=== PATIENT | female | born 1970 | race Two or more races ===

== ENCOUNTER → 2017-02-17 | Outpatient (CLI) | payer MEDICAID ==
[~2017-02-17] VITALS: Ht 165.1 cm; Wt 133.4 kg
[~2017-02-17] MED LIST: ADENOSINE IV STA; GIVE UN DILUTED IV STA
== END ==
LOC: HDHVI->DVH 08:56
PROVIDERS: ATTEND Internal Medicine Cardiovascular Disease
DX: R42 Dizziness and giddiness (principal); R03.0 Elevated blood-pressure reading, without diagnosis of hypertension; R06.02 Shortness of breath
CPT/HCPCS: 78452; 93005; 93306; 96374; 96375; A9500; J0153

== ENCOUNTER → 2017-07-04 | Outpatient (CLI) | payer MEDICAID ==
[~2017-07-04] VITALS: Ht 165.1 cm; Wt 131.5 kg
[~2017-07-04] MED LIST changes: -ADENOSINE IV STA; +ASPI81TA27 PO; +CAR3125T OR; +CITA-73 PO; +ENA2.5T PO; -GIVE UN DILUTED IV STA; +IBUP800T24 PO; +OME20T PO
[2017-07-04 10:35] VITALS: BP 133/83
[2017-07-04 11:00] VITALS: BP 141/87
[2017-07-04 12:47] LABS: Basophils # (auto) 0 uL; Basophils % (auto) 0.4 % (0.0-2.0); CONDITION Y; Eosinophils # (auto) 0.2 uL; Eosinophils % (auto) 2.9 % (0.0-7.0); Hematocrit 36.1 % (36.0-46.0); Hemoglobin 12.7 g/dL (12.2-16.2); Lymphocytes # (auto) 1.1 uL; Lymphocytes % (auto) 18.1 % (10.0-50.0); Mean Corpuscular Hemoglobin 31.1 pg (28.0-32.0); Mean Corpuscular Volume 88.8 fL (80.0-100.0); Mean Platelet Volume 8.1 fL (7.4-10.4); Monocytes # (auto) 0.6 uL; Monocytes % (auto) 9.2 % (0.0-12.0); Neutrophils # (auto) 4.2 uL; Neutrophils % (auto) 69.4 % (37.0-80.0); Platelet Count (auto) 326 10^3/uL (140-450); Red Cell Distribution Width 13.1 % (11.6-16.0); White Blood Cell 6.1 10^3/uL (4.4-10.8)
[2017-07-04 12:53] LABS: INR 0.89 (0.9-1.15); Prothrombin Time 9.7 sec (9.37-12.3)
[2017-07-04 13:45] LABS: Potassium 4.2 mmol/L (3.5-5.1)
[2017-07-04 13:47] LABS: BUN/Creatinine Ratio 17.8; Calcium 8.7 mg/dL (8.5-10.1)
== END | disposition home or self-care (01) ==
LOC: CHF HDHVI 10:13
PROVIDERS: ATTEND Internal Medicine Cardiovascular Disease
DX: Z01.818 Encounter for other preprocedural examination (principal); I10 Essential (primary) hypertension; D64.9 Anemia, unspecified; R79.1 Abnormal coagulation profile
CPT/HCPCS: 36415; 80048; 85025; 85610; 85730; 93005; G0463

== ENCOUNTER 2017-07-07 09:20 | Day surgery (SDC) | payer MEDICAID ==
[~2017-07-07] VITALS: Ht 165.1 cm; Wt 131.5 kg
[2017-07-07] MEDS ORDERED: IOHEXOL 350 MG/ML 100ML IJ ONE (10:20)
[2017-07-07] MEDS ORDERED: LIDOCAINE 2%HCL (LOCAL ANESTH.) INJ 20ML MDV ONE ×2 (10:20→10:53)
[2017-07-07] MEDS ORDERED: MIDAZOLAM HCL 1MG/1ML-2 ML VIAL ONE (10:23)
[2017-07-07] MEDS ORDERED: fentaNYL CITRATE 100 MCG/2 ML VL ONE (10:23)
[2017-07-07] MEDS ORDERED: SODIUM CHL 0.9% 0 ML ONE (10:24)
[2017-07-07] MEDS ORDERED: ANGIOMAX 250 MG VIAL IV ONE (10:25)
== END 2017-07-07 13:30 | disposition home or self-care (01) ==
LOC: CATH 09:20
PROVIDERS: ATTEND Internal Medicine Cardiovascular Disease
DX: R07.9 Chest pain, unspecified (principal); I10 Essential (primary) hypertension; E78.5 Hyperlipidemia, unspecified
CPT/HCPCS: 93460; J2250

== ENCOUNTER → 2022-07-09 | Outpatient (CLI) | payer MEDICAID ==
[~2022-07-09] MED LIST changes: +ALBUTEROL SULF 2.5 MG/0.5ML(0.5%) NEB SOLN ONE; +ASPI-543 PO; -ASPI81TA27 PO; -ENA2.5T PO; +ENAL2.5T11 PO; -IBUP800T24 PO; +IBUP800T26 PO
== END | disposition home or self-care (01) ==
LOC: RT 11:09
PROVIDERS: ATTEND Internal Medicine Pulmonary Disease
DX: R06.02 Shortness of breath (principal); R06.00 Dyspnea, unspecified; R05.9 Cough, unspecified
CPT/HCPCS: 94060; 94618; 94727; 94729

== ENCOUNTER → 2022-11-08 | Outpatient (CLI) | payer MEDICAID ==
[~2022-11-08] MED LIST changes: -ALBUTEROL SULF 2.5 MG/0.5ML(0.5%) NEB SOLN ONE
== END | disposition home or self-care (01) ==
LOC: XYW 13:23
PROVIDERS: ATTEND Internal Medicine
DX: Z01.810 Encounter for preprocedural cardiovascular examination (principal); I51.7 Cardiomegaly; I42.9 Cardiomyopathy, unspecified
CPT/HCPCS: 93306

== ENCOUNTER → 2022-11-12 | Outpatient (CLI) | payer MEDICAID ==
[~2022-11-12] VITALS: Ht 165.1 cm; Wt 145.1 kg
== END | disposition home or self-care (01) ==
LOC: XYW 08:05
PROVIDERS: ATTEND Internal Medicine
DX: Z01.810 Encounter for preprocedural cardiovascular examination (principal); I42.9 Cardiomyopathy, unspecified; J44.9 Chronic obstructive pulmonary disease, unspecified; I10 Essential (primary) hypertension; F17.210 Nicotine dependence, cigarettes, uncomplicated; Z82.49 Family history of ischemic heart disease and other diseases of the circulatory system
CPT/HCPCS: 78452; 93017; A9500